=== PATIENT | female | born 1955 | race Caucasian/White ===

== ENCOUNTER 2017-09-15 16:04 | Emergency (ER) | payer OTHER ==
[~2017-09-15] VITALS: Ht 167.6 cm; Wt 93.4 kg
[2017-09-15] MEDS ORDERED: MOTRIN600 MG PO (18:13)
[2017-09-15 18:24] VITALS: BP 119/59
== END 2017-09-15 18:25 | disposition home or self-care (01) ==
LOC: EME 16:04
DX: S16.1XXA Strain of muscle, fascia and tendon at neck level, initial encounter (principal); S09.90XA Unspecified injury of head, initial encounter; S80.02XA Contusion of left knee, initial encounter; W31.89XA Contact with other specified machinery, initial encounter; W22.8XXA Striking against or struck by other objects, initial encounter; Y99.0 Civilian activity done for income or pay; E78.5 Hyperlipidemia, unspecified
CPT/HCPCS: 72040; 73564; 99281; 99283